=== PATIENT | female | born 2000 | race Two or more races ===

== ENCOUNTER 2021-06-21 20:29 | Emergency (ER) | payer OTHER ==
[~2021-06-21] VITALS: Ht 170.2 cm; Wt 87.1 kg
[2021-06-21 20:29] VITALS: BP 125/74
[2021-06-21] MEDS ORDERED: diphenhdrAMINE HCL 50 MG/1 ML VL IM ONE (21:30)
[2021-06-21] MEDS ORDERED: methylPREDNISolone SOD SUCC 125 MG/2 ML VL IM ONE (21:30)
[2021-06-22] MEDS ORDERED: PRED20TA2 PO (05:12)
[2021-06-22] MEDS ORDERED: DIPH25CA29 PO (05:27)
== END 2021-06-22 05:19 | disposition home or self-care (01) ==
LOC: ER 20:32
DX: T78.40XA Allergy, unspecified, initial encounter (principal); Z79.899 Other long term (current) drug therapy; Y92.89 Other specified places as the place of occurrence of the external cause
CPT/HCPCS: 96372; 99284; J1200; J2930